=== PATIENT | female | born 1995 | race Caucasian/White ===

== ENCOUNTER 2022-10-11 20:08 | Emergency (ER) | payer BC, SELFPAY ==
[2022-10-11 20:12] VITALS: BP 157/96; PULSE 83; RESP 18; TEMP 36.6; O2SAT 100; BMI 21.7
--- NOTE | 2022-10-11 20:41 | ED_ITS ---
HPI - Allergic Reaction General Chief complaint: Allergic Reaction <KM Stephens - Last Filed: 10/11/22 20:52> Stated complaint: allergic reaction <KM Stephens - Last Filed: 10/11/22 20:52> Time Seen by Provider: 10/11/22 21:54 <KM Stephens - Last Filed: 10/11/22 20:52> Source: patient <Diana Finch MD - Last Filed: 10/12/22 00:52> Mode of arrival: ambulatory <Diana Finch MD - Last Filed: 10/12/22 00:52> Limitations: no limitations <Diana Finch MD - Last Filed: 10/12/22 00:52> History of Present Illness HPI narrative: Patient comes to the emergency room complaining of hives. Patient states that there was a [place] plant at home that initially gave her hives. Patient went to Urgent Care, she was given a prescription of prednisone p.o. and she did well. Once, the patient finish her course, a neighbor brought the same planned home and patient had hives again. Patient states that her lips are swollen and her face is swollen. Patient denies throat swelling, no difficulty swallowing, no shortness of breath <Diana Finch MD - Last Filed: 10/12/22 00:52> Related Data Home medications: Previous Rx's Medication Instructions Recorded prednisone 10 mg tablet 10 mg PO DIRECTED #10 tabs 10/12/22 <KM Stephens - Last Filed: 10/11/22 20:52> Allergies/adverse reactions: Allergies Allergy/AdvReac Type Severity Reaction Status Date / Time pollen extracts Allergy Itching Verified 10/11/22 22:33 <KM Stephens - Last Filed: 10/11/22 20:52> Review of Systems Review of Systems: Constitutional : No Weight loss, No Fever, No Chills, No Night Sweats, No Fatigue, No Malaise ENT/Mouth : No Hearing loss, No Ear Pain, No Nasal Congestion, No Sinus Pain, No Hoarseness, No sore throat, No Rhinorrhea, No Swallowing Difficulty Eyes: No Eye Pain, No Swelling, No Redness, No Foreign Body, No Discharge, No Vision Changes Cardiovascular : No Chest Pain, No SOB, No Dyspnea on Exertion, No Orthopnea, No Edema, No Palpitations Respiratory : No Cough, No Sputum, No Wheezing, No Smoke Exposure, No Dyspnea Gastrointestinal : No Nausea, No Vomiting, No Diarrhea, No Constipation, No abdominal Pain, No Hematochezia, No Melena Genitourinary : no irregular bleeding, No Dysuria, No Urinary Frequency, No Hematuria, No Urinary Incontinence, No Urgency, No Flank Pain, No Urinary Flow Changes, No Hesitancy Musculoskeletal : No joint pain, No Myalgias, No Joint Swelling Skin : Hives in forearms and legs Neuro : No Weakness, No Numbness, No Paresthesias, No Loss of Consciousness, No Dizziness, No Headache Psych : No Anxiety/Panic, No Depression, No SI/HI/AH/VH, No Social Issues, Heme/Lymph: No Bruising, No Bleeding,No Lymphadenopathy Endocrine : No Polyuria, No Polydipsia, No Temperature Intolerance <Diana Finch MD - Last Filed: 10/12/22 00:52> [facility] Social History Social History: Social History Advance Directives: No Advance Directives Information Provided: No <KM Stephens - Last Filed: 10/11/22 20:52> Physical Exam ED Vital Signs: Vital Signs - 24 hr 10/11/22 20:12 Temperature 97.9 F Pulse Rate 83 Respiratory Rate 18 Blood Pressure 157/96 H Pulse Oximetry 100 Oxygen Delivery Method Room Air BMI result Body Mass Index 21.7 <KM Stephens - Last Filed: 10/11/22 20:52> Vital Signs - 24 hr 10/11/22 20:12 Temperature 97.9 F Pulse Rate 83 Respiratory Rate 18 Blood Pressure 157/96 H Pulse Oximetry 100 Oxygen Delivery Method Room Air BMI result Body Mass Index 21.7 <Diana Finch MD - Last Filed: 10/12/22 00:52> Const Other: Appearance: Alert. Oriented X3. No acute distress. Eyes: Pupils equal, round and reactive to light. ENT: Pharynx normal. No angioedema, no lip swelling, no uvula swelling Neck: Normal inspection. Neck supple. No lymph nodes noted. No crepitus CVS: Normal heart rate and rhythm. Pulses normal. Normal S1 and S2 Respiratory: No respiratory distress. Breath sounds normal. No Wheezing. No rales Abdomen: Soft and nontender. No rigidity. No distention. Skin: Hives in dorsum of hands and back of the knees bilaterally Extremities: No lower extremity edema. No Lacerations. No Rash Neuro: Oriented X 3. No motor deficit. No sensory deficit. Moving all extremities. No slurred speech. CN 2 through 12 grossly intact Psych: calm, cooperative, normal affect <Diana Finch MD - Last Filed: 10/12/22 00:52> Course Course Course Narrative: 20:41 - RME - 26 yo female presenting to the ER for evaluation of allergic reaction that has been going on for 5 days. Seen at an Urgent Care 5 days ago for hives and facial swelling, possibly due to a [place] plant. Was given Rx for prednisone 40 mg x5 days and claritin with improvement in her symptoms. Last dose of prednisone was yesterday and today symptoms worsened with increased hives on UE and swelling of left side of her face. Feels like her neck is full. No trouble breathing or swallowing. Airway patent, lungs clear, no tongue or lip swelling. Will order benadryl for now. <KM Stephens - Last Filed: 10/11/22 20:52> 20:41 - RME - 26 yo female presenting to the ER for evaluation of allergic reaction that has been going on for 5 days. Seen at an Urgent Care 5 days ago for hives and facial swelling, possibly due to a [place] plant. Was given Rx for prednisone 40 mg x5 days and claritin with improvement in her symptoms. Last dose of prednisone was yesterday and today symptoms worsened with increased hives on UE and swelling of left side of her face. Feels like her neck is full. No trouble breathing or swallowing. Airway patent, lungs clear, no tongue or lip swelling. Will order benadryl for now. After IV treatment with Solu-Medrol, Pepcid, fluids, patient no longer having hives. Discussed with the patient that she needs to be seen by her primary care physician get allergy tested <Diana Finch MD - Last Filed: 10/12/22 00:52> Medications Administered Discontinued Medications Generic Name Dose Route Start Last Admin Trade Name Freq PRN Reason Stop Dose Admin Diphenhydramine HCl 50 mg 10/11/22 20:41 10/11/22 22:10 Diphenhydramine Hcl 25 Mg Capsule PO 10/11/22 20:42 50 mg ONCE ONE Administration Diphenhydramine HCl 25 mg 10/11/22 22:20 10/11/22 22:38 Diphenhydramine Hcl 50 Mg/Ml Vial IVPUSH 10/11/22 22:21 Not Given ONCE ONE Famotidine 20 mg 10/11/22 22:20 10/11/22 22:38 Famotidine/Pf 20 Mg/2 Ml Vial IVPUSH 10/11/22 22:21 20 mg ONCE ONE Administration Methylprednisolone Sodium Succinate 125 mg 10/11/22 22:20 10/11/22 22:37 Methylprednisolone Sod Succ 125 Mg/2 Ml Vial IVPUSH 10/11/22 22:21 125 mg ONCE ONE Administration <KM Stephens - Last Filed: 10/11/22 20:52> Medications Administered Discontinued Medications Generic Name Dose Route Start Last Admin Trade Name Goldyq PRN Reason Stop Dose Admin Diphenhydramine HCl 50 mg 10/11/22 20:41 10/11/22 22:10 Diphenhydramine Hcl 25 Mg Capsule PO 10/11/22 20:42 50 mg ONCE ONE Administration Diphenhydramine HCl 25 mg 10/11/22 22:20 10/11/22 22:38 Diphenhydramine Hcl 50 Mg/Ml Vial IVPUSH 10/11/22 22:21 Not Given ONCE ONE Famotidine 20 mg 10/11/22 22:20 10/11/22 22:38 Famotidine/Pf 20 Mg/2 Ml Vial IVPUSH 10/11/22 22:21 20 mg ONCE ONE Administration Methylprednisolone Sodium Succinate 125 mg 10/11/22 22:20 10/11/22 22:37 Methylprednisolone Sod Succ 125 Mg/2 Ml Vial IVPUSH 10/11/22 22:21 125 mg ONCE ONE Administration <Diana Finch MD - Last Filed: 10/12/22 00:52> Medical Decision Making Differential Diagnosis Differential Diagnoses: The differential diagnosis associated with the presentation includes (Allergic reaction, dermatitis) <Diana Finch MD - Last Filed: 10/12/22 00:52> Discharge Plan Discharge Clinical Impression: Allergic reaction <KM Stephens - Last Filed: 10/11/22 20:52> Patient Disposition: Home, Self-Care <KM Stephens - Last Filed: 10/11/22 20:52> Instructions: Allergy Testing (ED) <KM Stephens - Last Filed: 10/11/22 20:52> Additional Instructions: Please follow-up with your primary care physician tomorrow. If you have any worsening or new symptoms, please return to the emergency room or call 911 <KM Stephens - Last Filed: 10/11/22 20:52> Prescriptions: New prednisone 10 mg tablet 10 mg PO DIRECTED Qty: 10 0RF Rx Instructions: see taper instructions: Take 40 mg for 1 day, 30 mg for 1 day, 20 mg for 1 day 10 mg for 1 day <KM Stephens - Last Filed: 10/11/22 20:52>
[2022-10-11] MEDS: diphenhydrAMINE HCL 25 MG CAPSULE 50 MG PO (22:10)
[2022-10-11] MEDS: methylPREDNISolone Sod Succ 125 MG/2 ML VIAL IVPUSH (22:37)
[2022-10-11] MEDS: Famotidine/PF 20 MG/2 ML VIAL IVPUSH (22:38)
--- NOTE | 2022-10-12 00:05 | PC.NURSE ---
PT sleeping, no apparent distress. Will continue to monitor.
--- NOTE | 2022-10-12 00:49 | PC.NURSE ---
PT denies any pain, states feeling better swelling went down a lot .
[2022-10-12 01:08] VITALS: BP 102/66; PULSE 58; RESP 16; TEMP 36.8; O2SAT 98
== END 2022-10-12 01:16 | disposition home or self-care (01) ==
PROVIDERS: Emergency Provider Emergency Medicine
DX: L50.0 Allergic urticaria (principal)
CPT/HCPCS: 96374; 96375; 99283; 99284; J2930